=== PATIENT | male | born 2000 | race African-American/Black ===

== ENCOUNTER 2023-03-07 00:58 | Observation (INO) | payer OTHER, SELFPAY ==
[2023-03-07] VITALS (12 sets, daily range): BP systolic 108–126; BP diastolic 37–71; PULSE 53–80; RESP 14–20; TEMP 36.6–37.2; O2SAT 90–100; BMI 26.6; BMI 26.9
--- NOTE | ~2023-03-07 | CT_ITS ---
EXAMINATION: CT ABDOMEN AND PELVIS WITH CONTRAST CLINICAL INFORMATION: Right lower quadrant periumbilical pain COMPARISON: None available. TECHNIQUE: Multidetector volumetric images were obtained from the superior aspect of the liver through the pubic symphysis following administration 85 mL of Omnipaque 350 intravenous contrast. Sagittal and coronal reformatted images were obtained on the technologist's workstation. Oral contrast: No This CT examination was performed using dose optimization techniques as appropriate, variously including the following: *Automated exposure control *Adjustment of mA and/or kV according to patient size (this includes techniques or standardized protocols for targeted exams where dose is matched to indication/reason for exam; i.e. extremities or head) *Use of iterative reconstruction technique DLP: 441 mGy-cm FINDINGS: LUNG BASES: The visualized lung bases are unremarkable. LIVER, GALLBLADDER, AND BILIARY TREE: The liver is normal in size, shape, and attenuation. Calcified granuloma in the medial segment of the liver. No suspicious hepatic lesion or biliary ductal dilatation is present. The gallbladder is unremarkable with no evidence of radiopaque gallstones, gallbladder wall thickening, or obvious pericholecystic inflammatory changes. PANCREAS: Unremarkable. SPLEEN: Unremarkable. ADRENAL GLANDS: Unremarkable. KIDNEYS AND URETERS: The kidneys are normal in size, shape, and attenuation. No hydronephrosis, hydroureter, or calculi seen. No perinephric stranding. BLADDER: Unremarkable. GASTROINTESTINAL TRACT: Appendix is dilated, and predominantly fluid-filled measuring up to 1.3 cm in diameter with accompanying mucosal hyperemia and a subcentimeter appendicolith near the origin (see modi images). Remainder of the GI tract unremarkable. ABDOMINAL WALL: No significant hernia is appreciated. LYMPH NODES: Normal. VASCULAR: Unremarkable. PELVIC VISCERA: Unremarkable. OSSEOUS STRUCTURES: Unremarkable. CT/CT abdomen pelvis w IV con IMPRESSION: Acute uncomplicated appendicitis.
[2023-03-07 02:00] LABS: Basophils Percent Auto 0.2 % (0-2); Eosinophils Percent Auto 0.5 % (0-4); Hemoglobin 16.3 g/dl (14.0-18.0); Imm Gran Abs Auto 0.01 X10*3/uL (0.00-0.03); Imm Gran Pct Auto 0.1 % (0.0-0.4); Lymphocytes Absolute Auto 1.3 X10*3/uL (1.2-4.9); Lymphocytes Percent Auto 15.5 % (20-40); MANUAL DIFF FLAG NO; Mean Corpuscular Hemoglobin 28.9 pg (27.0-33.0); Mean Corpuscular Volume 85.1 fL (80.0-98.0); Mean Platelet Volume 8.9 fL (9.4-12.4); Monocytes Absolute Auto 0.6 X10*3/uL (0.1-1.2); Monocytes Percent Auto 7.3 % (2-11); Neutrophils Absolute Auto 6.1 x10*3/uL (2.0-8.3); Neutrophils Percent Auto 76.4 % (45-73); Platelet Count 166 X10*3/uL (160-400); Red Blood Count 5.64 X10*6/uL (4.60-5.80); Red Cell Distribution Width 12.6 % (11.0-16.0); White Blood Count 8.1 X10*3/uL (4.8-10.8)
--- NOTE | 2023-03-07 02:08 | ED.ABDPAIN ---
HPI - Abdominal Pain General Chief Complaint: Abdominal Pain Stated Complaint: stomach pain Time Seen by Provider: 03/07/23 01:46 Source: patient Mode of arrival: ambulatory History of Present Illness HPI narrative: 22-year-old male who presents with periumbilical/right lower quadrant pain started yesterday has been associated with nausea but denies any vomiting, reports decreased appetite but denies any fever chills or urinary symptoms. Related Data Allergies Allergy/AdvReac Type Severity Reaction Status Date / Time No Known Allergies Allergy Verified 03/07/23 02:07 Review of Systems Review of Systems Pertinent positives and negatives as stated in HPI REPLACED BY [facility] Past Medical History Source: nursing notes reviewed Social History Social History Advance Directives: No Advance Directives Information Provided: No Physical Exam ED Vital Signs: Vital Signs - 24 hr 03/07/23 01:23 03/07/23 01:24 03/07/23 03:18 Temperature 98.1 F 97.8 F Pulse Rate 64 64 77 Respiratory Rate 18 18 18 Blood Pressure 123/71 126/71 118/59 L Pulse Oximetry 100 99 99 Oxygen Delivery Method Room Air Room Air Room Air BMI result Body Mass Index 26.6 VITAL SIGNS: Reviewed. GENERAL: Well developed, well nourished, in no acute distress. HEAD: Normocephalic/atraumatic EYES: PERRLA, EOMI EARS: Ext canals without abnormality NOSE: Nares patent bilateral OROPHARYNX: no oral lesions noted, posterior pharynx clear NECK: Supple, no adenopathy LUNGS: Normal breath sounds. No adventitious sounds or accessory muscle use. SpO2<99> CARDIOVASCULAR: Regular rate and rhythm without noted murmurs ABDOMEN: Soft, periumbilical/right lower quadrant pain, non-distended with bowel sounds. MUSCULOSKELETAL: No tenderness, deformities, or effusions noted on gross inspection. EXTREMITIES: No cyanosis, clubbing or edema. SKIN: Inspection of the skin reveals no rashes NEUROLOGIC: Alert and oriented x 4. Strength and sensation to light touch were grossly intact x 4. Medical Decision Making Medical Decision Making [facility] Narrative: 0210: 22-year-old male with history and clinical presentation suggestive of acute appendicitis Review of all investigations my interpretation is this patient has acute appendicitis. He has received IV fluids, pain medication, antinausea medication, antibiotics. Differential Diagnosis Please see the discussion above Consult Healthcare Provider Management of the patient was discussed with: Planning Engineer Please see the discussion above Lab Data Please see the discussion above 03/07/23 01:55 03/07/23 01:55 Labs: Lab Results 03/07/23 03/07/23 03/07/23 Range/Units 01:55 01:55 04:06 WBC 8.1 (4.8-10.8) X10*3/uL RBC 5.64 (4.60-5.80) X10*6/uL Hgb 16.3 (14.0-18.0) g/dl Hct 48.0 (42.0-52.0) % MCV 85.1 (80.0-98.0) fL MCH 28.9 (27.0-33.0) pg MCHC 34.0 (31.0-36.0) g/dl RDW 12.6 (11.0-16.0) % Plt Count 166 (160-400) X10*3/uL MPV 8.9 L (9.4-12.4) fL Immature Gran % (Auto) 0.1 (0.0-0.4) % Neut % (Auto) 76.4 H (45-73) % Lymph % (Auto) 15.5 L (20-40) % [place] % (Auto) 7.3 (2-11) % Eos % (Auto) 0.5 (0-4) % Baso % (Auto) 0.2 (0-2) % Lymph # (Auto) 1.3 (1.2-4.9) X10*3/uL [place] # (Auto) 0.6 (0.1-1.2) X10*3/uL Eos # (Auto) 0.0 (0.0-0.4) X10*3/uL Baso # (Auto) 0.0 (0.0-0.2) X10*3/uL Abs Immat Gran (auto) 0.01 (0.00-0.03) X10*3/uL Absolute Neuts (auto) 6.1 (2.0-8.3) x10*3/uL Absolute Nucleated RBC 0.000 (0.0-0.012) X10*3/uL Nucleated RBC % (auto) 0.0 (0.0-0.2) /100WBC Sodium 138 (135-145) mmol/L Potassium 4.0 (3.3-5.1) mmol/L Chloride 102 (96-108) mmol/L Carbon Dioxide 28 (22-29) mmol/L Anion Gap 12 (12-20) BUN 11 (9-16) mg/dL Creatinine 1.24 (0.5-1.4) mg/dL Estim Creat Clear Calc 88.1 Estimated GFR > 60 Random Glucose 103 (60-115) mg/dL Calcium 9.7 (8.4-10.2) mg/dL Total Bilirubin 1.4 H (0.0-1.0) mg/dL Direct Bilirubin 0.4 (0.0-0.5) mg/dL AST 25 (5-37) U/L ALT 16 (0-40) U/L Alkaline Phosphatase 95 (39-117) U/L Total Protein 7.3 (6.5-8.0) g/dL Albumin 4.2 (3.5-5.0) g/dL Lipase 18 (8-78) U/L Urine Color Yellow Urine Appearance Clear Urine pH 6.5 (5.0-9.0) Ur Specific [place] >= 1.030 H (1.005-1.025) Urine Protein Negative (Neg-Trace) mg/dL Urine Glucose (UA) Negative (Negative) mg/dL Urine Ketones 15 (Negative) mg/dL Urine Blood Negative (Negative) Urine Nitrite Negative (Negative) Ur Leukocyte Esterase Negative (Negative) Radiology Impression Radiologist Impression: My interpretation is in agreement with radiology's impression. Medications Administered Discontinued Medications Generic Name Dose Route Start Last Admin Trade Name Eddieq PRN Reason Stop Dose Admin Fentanyl 25 mcg 03/07/23 02:12 03/07/23 02:34 Fentanyl Citrate/Pf 100 Mcg/2 Ml Vial IVPUSH 03/07/23 02:13 25 mcg ONCE ONE Administration Protocol Sodium Chloride 1,000 mls @ 999 mls/hr 03/07/23 02:15 03/07/23 04:02 Ns IV 03/07/23 03:15 Infused .Q1H1M CRUZ Infusion Iohexol 85 ml 03/07/23 03:44 03/07/23 03:44 Iohexol 350 Mg/Ml 100 Ml Infus..Btl IV 03/07/23 03:45 85 ml ONCE ONE Administration Ketorolac Tromethamine 15 mg 03/07/23 03:51 03/07/23 04:02 Ketorolac Tromethamine 30 Mg/Ml Vial IVPUSH 03/07/23 03:52 15 mg ONCE ONE Administration Discharge Plan Discharge Clinical Impression: Acute appendicitis Patient Disposition: Admitted As Inpatient
[2023-03-07 02:15] LABS: Alanine Aminotransferase 16 U/L (0-40); Albumin Level 4.2 g/dL (3.5-5.0); Alkaline Phosphatase 95 U/L (39-117); Anion Gap 12 (12-20); Aspartate Amino Transferase 25 U/L (5-37); Bilirubin Direct 0.4 mg/dL (0.0-0.5); Bilirubin Total 1.4 mg/dL (0.0-1.0); Blood Urea Nitrogen 11 mg/dL (9-16); Calcium 9.7 mg/dL (8.4-10.2); Carbon Dioxide 28 mmol/L (22-29); Chloride 102 mmol/L (96-108); Creatinine Clr Calc Pharmacy 88.1; Estimated Glomerular Filt Rate > 60; Glucose Random 103 mg/dL (60-115); Lipase 18 U/L (8-78); Sodium 138 mmol/L (135-145); Total Protein 7.3 g/dL (6.5-8.0)
[2023-03-07] MEDS: fentaNYL citrate/PF 100 MCG/2 ML VIAL 25 MCG IVPUSH (02:34)
[2023-03-07] MEDS: 0.9 % Sodium Chloride 1,000 ML 999 ML IV (02:34)
[2023-03-07] MEDS: iohexoL 350 MG/ML 100 ML INFUS..BTL 85 ML IV (03:44)
[2023-03-07] MEDS: Ketorolac Tromethamine 30 MG/ML VIAL 15 MG IVPUSH (04:02)
--- NOTE | 2023-03-07 04:10 | PC.NURSE ---
pt reports continued pain. this rn made dr gupta aware. pt medicated according to dec. pt ambulatory to restroom, urine sample obtained and sent down to lab
[2023-03-07 04:12] LABS: Appearance Urine Clear; Color Urine Yellow; Glucose Urine UA Negative (Negative); Leukocyte Esterase Urine Negative (Negative); Nitrite Urine Negative (Negative); PH 6.5 (5.0-9.0); Specific Gravity - Urine >= 1.030 (1.005-1.025); Urine Blood Negative (Negative); Urine Ketones 15 mg/dL (Negative); Urine Protein Negative (Neg-Trace)
[2023-03-07] MEDS: Piperacillin Sodium/Tazobactam 3.375 GM in 0.9 % Sodium Chloride 50 ML IV ×4 (05:00→23:47)
[2023-03-07] MEDS: ondansetron HCL 4 MG/2 ML VIAL IVPUSH (05:00)
--- NOTE | 2023-03-07 05:09 | PC.NURSE ---
pt resting on stretcher at this time. pt calm and cooperative. pt reports 4/10 pain at this time. pt states feeling much better . lights dimmed. pt medicated according to mar
[2023-03-07 05:10] LABS: Lactic Acid 0.6 mmol/L (0.5-2.0)
[2023-03-07] MEDS: Dextrose 5 % and Lactated Ring 1,000 ML 125 ML IVCONT (05:31)
--- NOTE | 2023-03-07 06:50 | PC.NURSE ---
pt able to sleep at this time. pt positioned on back. lights dimmed. IVF infusing according to mar
--- NOTE | 2023-03-07 08:47 | PM.HPGS ---
History of Present Illness History of Present Illness Date of Service: 03/10/23 Chief complaint: Acute Appendicitis Narrative: Rosendo Morris is a 22 year old male seen in the ER for abdominal pain. He says that this started about 36 hours ago. He describes this as all over his lower abdomen, right more than the left. He says that this has been persistent and constant. He denies any nausea or vomiting. He denies any diarrhea or other GI complaints. He has never had any similar episodes in the past. He is healthy otherwise and denies any medical problems. He says he does not have any primary care physician. 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 Review of Systems Constitutional: Constitutional: Denies chills and Denies fever(s) Cardiovascular: Cardiovascular: Denies chest pain, Denies dyspnea and Denies dyspnea on exertion Respiratory: Respiratory: Denies cough, Denies dyspnea and Denies dyspnea on exertion Gastrointestinal: Gastrointestinal: Denies hematochezia and Denies change in bowel habits Genitourinary: Genitourinary: Denies hematuria and Denies difficulty urinating Musculoskeletal: Musculoskeletal: Denies back pain and Denies limited range of motion Neurologic: Denies focal weakness and Denies convulsions Psychiatric: Psychiatric: Denies depression and Denies mood swings PMFSH Social History Social History Household Members: Family Housing: Apartment Patient Tobacco Use Status: Never used Tobacco service: No Current occupational status: student Meds Allergies Allergy/AdvReac Type Severity Reaction Status Date / Time No Known Allergies Allergy Verified 03/07/23 02:07 Active Medications: Current Medications Acetaminophen (Acetaminophen 325 Mg Tablet) 650 mg PO QID PRN PRN Reason: headache, temp > 101 Hydromorphone HCl (Hydromorphone Hcl 0.5 Mg/0.5 Ml Syringe) 0.5 mg IVPUSH Q3H PRN; Protocol PRN Reason: Pain, Severe (Pain Scale 7-10) Dextrose/Lactated Ringer's (D5lr) 1,000 mls @ 125 mls/hr IVCONT .Q8H CRUZ Last Admin: 03/07/23 05:31 Dose: 125 mls/hr Piperacillin Sod/Tazobactam (Sod 3.375 gm/ Sodium Chloride) 50 mls @ 100 mls/hr IV Q6H CRUZ Ondansetron HCl (Ondansetron Hcl 4 Mg/2 Ml Vial) 4 mg IVPUSH QID PRN PRN Reason: Nausea Oxycodone HCl (Oxycodone Hcl Immed Release 5 Mg Tablet) 5 mg PO Q6H PRN PRN Reason: Pain, Moderate(Pain Scale 4-6) Sodium Chloride (0.9 % Sodium Chloride Flush 3 Ml Syringe) 3 ml IVFLUSH QSHIFT CRUZ Physical Exam Vital Signs: Vital Signs: Last Vital Signs Temp 98.4 F 03/07/23 05:38 Pulse 67 03/07/23 05:38 Resp 14 03/07/23 05:38 BP 108/37 L 03/07/23 05:38 Pulse Ox 98 03/07/23 05:38 O2 Del Method Room Air 03/07/23 05:38 BMI result Body Mass Index 26.6 Const: Other: Complains of pain on the lower abdomen General: comfortable and no acute distress Orientation/consciousness: patient oriented x3 Neck: Neck: Yes no lymphadenopathy Resp: Auscultation: clear to auscultation bilaterally Cardio: Rhythm: regular rhythm GI: Other: tender on the lower abdomen, right more than the left, with mild guarding Inspection: No distended Palpation (GI): Soft to palpation, Tenderness to palpation present (GI) and no guarding Neuro: General: patient oriented x3 Results Results Labs: Short CBC 03/07/23 Range/Units 01:55 WBC 8.1 (4.8-10.8) X10*3/uL Hgb 16.3 (14.0-18.0) g/dl Hct 48.0 (42.0-52.0) % Plt Count 166 (160-400) X10*3/uL BMP 03/07/23 01:55 Sodium 138 Potassium 4.0 Chloride 102 Carbon Dioxide 28 BUN 11 Creatinine 1.24 Calcium 9.7 Liver Function 03/07/23 Range/Units 01:55 Total Bilirubin 1.4 H (0.0-1.0) mg/dL Direct Bilirubin 0.4 (0.0-0.5) mg/dL AST 25 (5-37) U/L ALT 16 (0-40) U/L Alkaline Phosphatase 95 (39-117) U/L Albumin 4.2 (3.5-5.0) g/dL Urine 03/07/23 Range/Units 04:06 Urine Color Yellow Urine Appearance Clear Urine pH 6.5 (5.0-9.0) Ur Specific [place] >= 1.030 H (1.005-1.025) Urine Protein Negative (Neg-Trace) mg/dL Urine Glucose (UA) Negative (Negative) mg/dL Laboratory Results WBC 8.1 X10*3/uL (4.8-10.8) 03/07/23 01:55 RBC 5.64 X10*6/uL (4.60-5.80) 03/07/23 01:55 Hgb 16.3 g/dl (14.0-18.0) 03/07/23 01:55 Hct 48.0 % (42.0-52.0) 03/07/23 01:55 MCV 85.1 fL (80.0-98.0) 03/07/23 01:55 MCH 28.9 pg (27.0-33.0) 03/07/23 01:55 MCHC 34.0 g/dl (31.0-36.0) 03/07/23 01:55 RDW 12.6 % (11.0-16.0) 03/07/23 01:55 Plt Count 166 X10*3/uL (160-400) 03/07/23 01:55 MPV 8.9 fL (9.4-12.4) L 03/07/23 01:55 Immature Gran % (Auto) 0.1 % (0.0-0.4) 03/07/23 01:55 Neut % (Auto) 76.4 % (45-73) H 03/07/23 01:55 Lymph % (Auto) 15.5 % (20-40) L 03/07/23 01:55 [place] % (Auto) 7.3 % (2-11) 03/07/23 01:55 Eos % (Auto) 0.5 % (0-4) 03/07/23 01:55 Baso % (Auto) 0.2 % (0-2) 03/07/23 01:55 Lymph # (Auto) 1.3 X10*3/uL (1.2-4.9) 03/07/23 01:55 [place] # (Auto) 0.6 X10*3/uL (0.1-1.2) 03/07/23 01:55 Eos # (Auto) 0.0 X10*3/uL (0.0-0.4) 03/07/23 01:55 Baso # (Auto) 0.0 X10*3/uL (0.0-0.2) 03/07/23 01:55 Abs Immat Gran (auto) 0.01 X10*3/uL (0.00-0.03) 03/07/23 01:55 Absolute Neuts (auto) 6.1 x10*3/uL (2.0-8.3) 03/07/23 01:55 Absolute Nucleated RBC 0.000 X10*3/uL (0.0-0.012) 03/07/23 01:55 Nucleated RBC % (auto) 0.0 /100WBC (0.0-0.2) 03/07/23 01:55 Sodium 138 mmol/L (135-145) 03/07/23 01:55 Potassium 4.0 mmol/L (3.3-5.1) 03/07/23 01:55 Chloride 102 mmol/L (96-108) 03/07/23 01:55 Carbon Dioxide 28 mmol/L (22-29) 03/07/23 01:55 Anion Gap 12 (12-20) 03/07/23 01:55 BUN 11 mg/dL (9-16) 03/07/23 01:55 Creatinine 1.24 mg/dL (0.5-1.4) 03/07/23 01:55 Estim Creat Clear Calc 88.1 03/07/23 01:55 Estimated GFR > 60 03/07/23 01:55 Random Glucose 103 mg/dL (60-115) 03/07/23 01:55 Lactic Acid 0.6 mmol/L (0.5-2.0) 03/07/23 04:48 Calcium 9.7 mg/dL (8.4-10.2) 03/07/23 01:55 Total Bilirubin 1.4 mg/dL (0.0-1.0) H 03/07/23 01:55 Direct Bilirubin 0.4 mg/dL (0.0-0.5) 03/07/23 01:55 AST 25 U/L (5-37) 03/07/23 01:55 ALT 16 U/L (0-40) 03/07/23 01:55 Alkaline Phosphatase 95 U/L (39-117) 03/07/23 01:55 Total Protein 7.3 g/dL (6.5-8.0) 03/07/23 01:55 Albumin 4.2 g/dL (3.5-5.0) 03/07/23 01:55 Lipase 18 U/L (8-78) 03/07/23 01:55 Urine Color Yellow 03/07/23 04:06 Urine Appearance Clear 03/07/23 04:06 Urine pH 6.5 (5.0-9.0) 03/07/23 04:06 Ur Specific [place] >= 1.030 (1.005-1.025) H 03/07/23 04:06 Urine Protein Negative mg/dL (Neg-Trace) 03/07/23 04:06 Urine Glucose (UA) Negative mg/dL (Negative) 03/07/23 04:06 Urine Ketones 15 mg/dL (Negative) 03/07/23 04:06 Urine Blood Negative (Negative) 03/07/23 04:06 Urine Nitrite Negative (Negative) 03/07/23 04:06 Ur Leukocyte Esterase Negative (Negative) 03/07/23 04:06 Impressions Abdomen/Pelvis CT 03/07/23 03:40 IMPRESSION: Acute uncomplicated appendicitis. Assessment and Plan (1) Acute appendicitis: Status: Acute 22-year-old male, abdominal pain, right more than the left. I have reviewed his CAT scan with the radiologist this morning. There is note of some edema and hyperemia of the appendix along with a small appendicoliths. Overall clinical findings are consistent with acute appendicitis. I therefore explained to him the none of proceeding with laparoscopic appendectomy and possible open appendectomy. I reviewed the risks including but not limited to bleeding, infections, injury to other organs including bowel and had tract, blood clots, pneumonia, well as the benefits and alternatives. He understands the option of IV antibiotic treatment alone, although with the presence of the appendicoliths, I explained to him that this may not be effective. He says he understands and wants to proceed with laparoscopic appendectomy. I had a long discussion with his mother as well who lives in [place] at [phone]. Time Spent With Patient Time: Total time managing care of this patient today ____ minutes. Quality Stroke Does the patient have a stroke diagnosis?: No VTE Prior VTE?: No VTE Risk Level:: Surgical - low VTE Device Contraindication: N/A - Device Ordered VTE Drug Contraindication: Treatment Not Indicated Procedures Date of Service Date of Service: 03/10/23
--- NOTE | 2023-03-07 09:28 | PC.NURSE ---
Spoke to [facility] about patient's status, requesting fax [phone] upon discharge about pt's stay/discharge instructions. Pt aware
--- NOTE | 2023-03-07 10:26 | HO.ANESPROP2 ---
HPI - Anesthesia Eval Consult details Narrative: for appendectomy PMFSH Active Problems Active Problems: All Active Problems (Updated 03/07/23 @ 04:41 by Charley Gomez MD) Acute appendicitis (Acute) Family History Family history of problems with anesthesia: No Surgical History History of Problems with Anesthesia: No Social History Social History Household Members: Family Housing: Apartment Patient Tobacco Use Status: Never used Tobacco Smoked in Last 30 Days: No Use of substances other than those prescribed or required for medical reasons: No Have you been hit, kicked, punched, or otherwise hurt by someone within the past year? If so, by whom?: No Do you feel safe in your current relationship?: No Is there a partner from a previous relationship who is making you feel unsafe now?: No Are you made to feel afraid or neglected: No Advance Directives: No Advance Directives Information Provided: No Do you have thoughts of harming others: None Do you have a plan to hurt others: No Plan Recently lost weight without trying: No Eating poorly because of decreased appetite: No Nutrition Risks: No Nutritional Risk Poor oral hygiene: Yes Meds Allergies Allergy/AdvReac Type Severity Reaction Status Date / Time No Known Allergies Allergy Verified 03/07/23 02:07 Active Medications: Current Medications Acetaminophen (Acetaminophen 325 Mg Tablet) 650 mg PO QID PRN PRN Reason: headache, temp > 101 Hydromorphone HCl (Hydromorphone Hcl 0.5 Mg/0.5 Ml Syringe) 0.5 mg IVPUSH Q3H PRN; Protocol PRN Reason: Pain, Severe (Pain Scale 7-10) Dextrose/Lactated Ringer's (D5lr) 1,000 mls @ 125 mls/hr IVCONT .Q8H CRUZ Last Admin: 03/07/23 05:31 Dose: 125 mls/hr Piperacillin Sod/Tazobactam (Sod 3.375 gm/ Sodium Chloride) 50 mls @ 100 mls/hr IV Q6H CRUZ Ondansetron HCl (Ondansetron Hcl 4 Mg/2 Ml Vial) 4 mg IVPUSH QID PRN PRN Reason: Nausea Oxycodone HCl (Oxycodone Hcl Immed Release 5 Mg Tablet) 5 mg PO Q6H PRN PRN Reason: Pain, Moderate(Pain Scale 4-6) Sodium Chloride (0.9 % Sodium Chloride Flush 3 Ml Syringe) 3 ml IVFLUSH QSHIFT CRUZ Last Admin: 03/07/23 09:09 Dose: Not Given Home Medications Medication Instructions Recorded Confirmed Last Taken Type No Known Home Meds 03/07/23 03/07/23 Unknown History Exam Exam Date and Time: March 07, 2023 1026 Height,Weight and Vital Signs: Height 5 ft 7 in Weight 78 kg Last Vital Signs Temp 98.5 F 03/07/23 10:13 Pulse 80 03/07/23 10:13 Resp 20 03/07/23 10:13 BP 114/58 L 03/07/23 10:13 Pulse Ox 98 03/07/23 10:13 O2 Del Method Room Air 03/07/23 10:13 Pertinent Lab Results Pertinent Lab Results: Laboratory Tests 03/07/23 03/07/23 03/07/23 01:55 01:55 04:06 WBC 8.1 RBC 5.64 Hgb 16.3 Hct 48.0 MCV 85.1 MCH 28.9 MCHC 34.0 RDW 12.6 Plt Count 166 MPV 8.9 L Immature Gran % (Auto) 0.1 Neut % (Auto) 76.4 H Lymph % (Auto) 15.5 L [place] % (Auto) 7.3 Eos % (Auto) 0.5 Baso % (Auto) 0.2 Lymph # (Auto) 1.3 [place] # (Auto) 0.6 Eos # (Auto) 0.0 Baso # (Auto) 0.0 Abs Immat Gran (auto) 0.01 Absolute Neuts (auto) 6.1 Absolute Nucleated RBC 0.000 Nucleated RBC % (auto) 0.0 Sodium 138 Potassium 4.0 Chloride 102 Carbon Dioxide 28 Anion Gap 12 BUN 11 Creatinine 1.24 Estim Creat Clear Calc 88.1 Estimated GFR > 60 Random Glucose 103 Lactic Acid Calcium 9.7 Total Bilirubin 1.4 H Direct Bilirubin 0.4 AST 25 ALT 16 Alkaline Phosphatase 95 Total Protein 7.3 Albumin 4.2 Lipase 18 Urine Color Yellow Urine Appearance Clear Urine pH 6.5 Ur Specific [place] >= 1.030 H Urine Protein Negative Urine Glucose (UA) Negative Urine Ketones 15 Urine Blood Negative Urine Nitrite Negative Ur Leukocyte Esterase Negative 03/07/23 04:48 WBC RBC Hgb Hct MCV MCH MCHC RDW Plt Count MPV Immature Gran % (Auto) Neut % (Auto) Lymph % (Auto) [place] % (Auto) Eos % (Auto) Baso % (Auto) Lymph # (Auto) [place] # (Auto) Eos # (Auto) Baso # (Auto) Abs Immat Gran (auto) Absolute Neuts (auto) Absolute Nucleated RBC Nucleated RBC % (auto) Sodium Potassium Chloride Carbon Dioxide Anion Gap BUN Creatinine Estim Creat Clear Calc Estimated GFR Random Glucose Lactic Acid 0.6 Calcium Total Bilirubin Direct Bilirubin AST ALT Alkaline Phosphatase Total Protein Albumin Lipase Urine Color Urine Appearance Urine pH Ur Specific [place] Urine Protein Urine Glucose (UA) Urine Ketones Urine Blood Urine Nitrite Ur Leukocyte Esterase Airway Mallampati Class: I TM Dist: >3cm Neck ROM: Full Heart: ok Lungs: ok Assessment and Plan Assessment Anesthesia Assessment: Anesthesia Plan Discussed and Chart Reviewed Final Anesthetic Review Family History of Problems with Anesthesia: No History of Problems with Anesthesia: No NPO: Yes ASA Class: I and Emergency Final Preanesthetic Review: No Changes in Pt Med Stat, Meds/Allgs Chart Reviewed, Consent Obtained/Reviewed and Anes Risks/Benef Reviewed Patient Risk: Low Procedure Risk: Intermediate Anesthetic Plan Anesthetic Plan: GA and Agree w/ Assess. and Plan Disposition: Standard PACU
[2023-03-07] MEDS: oxyCODONE HCl Immed Release 5 MG TABLET PO (11:12)
--- NOTE | 2023-03-07 12:55 | P.OP_ITS ---
Operative Note Operative Note Date of Service: 03/07/23 Narrative: Preop diagnosis: Acute appendicitis Postop diagnosis: Acute appendicitis, with suppuration and purulence on the distal half of the appendix Procedure: Laparoscopic appendectomy Surgeon: Alex Brambila MD The patient is a 22-year-old male who went to the ER because of lower abdominal pain. His CAT scan was consistent with acute appendicitis. He understood the technique of laparoscopic appendectomy and was aware of the risks, benefits, and alternatives and given consent He was brought to the operating room. He was placed supine under general anesthesia via endotracheal tube. A Figueroa catheter inserted. The abdomen is prepped and draped in the usual sterile fashion. A surgical time-out was done. The patient was receiving Zosyn as scheduled. Made a short supraumbilical incision using a blade 15 and this was carried down through the full-thickness of the skin and subcutaneous fat. The fascia was exposed. The fascia was incised. The peritoneum was entered. Through this incision port was introduced. Pneumoperitoneum on was introduced to a pressure of 15 mm hg. From here on the rest of the procedure was done under vision with laparoscopic. with laparoscopic visualization, I proceeded to insert a 5/12 mm port in left lower quadrant through a small stab incision. 5 minutes a port introduced a small stab incision in the suprapubic margin. Graspers were placed on these working ports. The patient was placed in a head-down and [id number] position. The cecum was seen. by following the cecum, I was able to visualize the appendix. The appendix was hanging down into the low pelvis and was adherent to the sacrum and the pelvic sidewall as well. Multiple out of suppuration and purulence in the distal half of the appendix. There was note of a small bowel adherent to this but I was able to separate this really with gentle dissection. I applied a grasper on the mid part of the appendix to put this on stretch. I was able to therefore expose the base. I had to some of the ligamentous attachments on the Lateral side of the cecum to allow good mobilization and exposure of the entire base. with the appendix on stretch, I proceeded to create a mesenteric window at the base using the [place] dissector. I then used the Endo-DARRIUS 45 mm stapler to divide the base of the appendix. Used the LigaSure to divide the mesoappendix completely. Once this was achieved, I retrieved the appendix through an endobag through the umbilical incision. I reinserted all ports and re-insufflated. The area of dissection. The etta were intact. There is no signs of any bleeding. There was note of some pus in the pelvis so I suctioned and irrigated this. I observed all 4 quadrants. No other pathology seen. There were no signs of any bleeding or any bowel injury . Once hemostasis was confirmed, I desufflated to the port sites. I removed all ports under vision. The umbilical port was removed last. The fascia of the umbilical incision was closed with a figure-eight was of 0 stitch. Skin closure was achieved on all incisions using subcuticular running sutures with Polysorb 4-0. I infiltrated all incisions with Marcaine 0.5% for postop DARRIUS. Dressings were applied and the procedure was completed. The patient tolerated procedure well. There were no immediate complications. Initial and final counts of sponges and instruments were correct. Estimated b lood loss was about 10 cc. The patient was extubated without difficulty and transferred to the recovery room with stable vital signs.
[2023-03-07] MEDS: HYDROmorphone HCl 0.5 MG/0.5 ML SYRINGE IVPUSH ×2 (15:07→20:28)
[2023-03-07] MEDS: Dextrose 5 % and Lactated Ring 1,000 ML 60 ML IVCONT (15:08)
--- NOTE | 2023-03-07 15:37 | PM.EVENT ---
Event Note Date of Service: 03/07/23 Event Note: seen postop underwent lap appy earlier today looks well good pain control stable VS abd soft pain mgt doing well postop likely home tomorrow mother updated by phone Time Spent With Patient Time: Total time managing care of this patient today ____ minutes.
--- NOTE | 2023-03-07 16:00 | MHC.CM.PN ---
CM ATTEMPTED TO MEET WITH PT WHO HAD JUST RETURNED TO THE UNIT FOLLOWING A PROCEDURE AND IS QUITE LETHARGIC PT IS MINIMALLY ENGAGED BUT DOES PROVIDE SOME INFORMATION PT REPORTS HE RESIDES AT THE [facility] [facility] WHERE HE IS INDEPENDENT WITH CARE AND USES NO DME PT IS UNSURE IF HE HAS HEALTH INSURANCE BUT SAYS HE DID HAVE A PAPER FROM THE SCHOOL HE WILL LOCATE IT ONCE MORE ALERT HE DOES NOT HAVE A PCP OR A HCP CURRENT DC PLAN IS RETURN TO [facility] UNKNOWN AT THIS TIME
[2023-03-08 03:21] VITALS: BP 127/65; PULSE 63; RESP 16; TEMP 36.8; O2SAT 100
[2023-03-08] MEDS: Piperacillin Sodium/Tazobactam 3.375 GM in 0.9 % Sodium Chloride 50 ML IV ×2 (05:36→11:22)
[2023-03-08] MEDS: Dextrose 5 % and Lactated Ring 1,000 ML 60 ML IVCONT (05:36)
[2023-03-08 07:03] VITALS: BP 106/52; PULSE 54; RESP 18; TEMP 36.8; O2SAT 97
--- NOTE | 2023-03-08 10:09 | PM.PNGS ---
Subjective Subjective Date of Service: 03/08/23 <Purnima Subramanian PA-C - Last Filed: 03/08/23 10:12> 03/08/23 <Alex Brambila MD - Last Filed: 03/08/23 12:23> Interval history: Feels a little better but sore at umbilicus. Pain improved with narcotics for short period. Tolerating solid diet. OOB and ambulating halls. Unsure if he wants to go home as he has no help in the dorm. <Purnima Subramanian PA-C - Last Filed: 03/08/23 10:12> Physical Exam Vital Signs: Vital Signs: Last Vital Signs Temp 98.3 F 03/08/23 07:03 Pulse 54 03/08/23 07:03 Resp 18 03/08/23 07:03 BP 106/52 L 03/08/23 07:03 Pulse Ox 97 03/08/23 07:03 O2 Del Method Room Air 03/08/23 07:03 O2 Flow Rate 1 03/07/23 13:05 BMI result Body Mass Index 26.9 <Purnima Subramanian PA-C - Last Filed: 03/08/23 10:12> Const: General: comfortable, no acute distress and alert <DANYELLE Lundberg Last Filed: 03/08/23 10:12> Orientation/consciousness: patient oriented x3 <Purnima Subramanian PA-C - Last Filed: 03/08/23 10:12> Resp: Effort & Inspection: normal respiratory effort <Purnima Subramanian PA-C - Last Filed: 03/08/23 10:12> GI: Inspection: No distended and Yes incision (dressings c/d/i) <Purnima Subramanian PA-C - Last Filed: 03/08/23 10:12> Palpation (GI): Soft to palpation, Tenderness to palpation present (GI) (incisional), no guarding and not rigid <DANYELLE Lundberg Last Filed: 03/08/23 10:12> Percussion: Yes normal to percussion <DANYELLE Lundberg Last Filed: 03/08/23 10:12> Skin: General skin exam: no rashes or lesions noted <Purnima Subramanian PA-C - Last Filed: 03/08/23 10:12> Neuro: General: patient oriented x3 and moves all extremities <Purnima Subramanian PA-C - Last Filed: 03/08/23 10:12> Objective Data Active Medications Acetaminophen (Acetaminophen 325 Mg Tablet) 650 mg PO QID PRN PRN Reason: headache, temp > 101 Fentanyl (Fentanyl Citrate/Pf 100 Mcg/2 Ml Vial) 50 mcg IVPUSH Q5M PRN; Protocol PRN Reason: Pain, Severe (Pain Scale 7-10) Hydromorphone HCl (Hydromorphone Hcl 0.5 Mg/0.5 Ml Syringe) 0.5 mg IVPUSH Q3H PRN; Protocol PRN Reason: Pain, Severe (Pain Scale 7-10) Last Admin: 03/07/23 20:28 Dose: 0.5 mg Documented By: ERIN Hydromorphone HCl (Hydromorphone Hcl 0.5 Mg/0.5 Ml Syringe) 0.5 mg IVPUSH Q5M PRN; Protocol PRN Reason: Pain, Severe (Pain Scale 7-10) Dextrose/Lactated Ringer's (D5lr) 1,000 mls @ 60 mls/hr IVCONT .[id number] [facility] Last Admin: 03/08/23 05:36 Dose: 60 mls/hr Documented By: ERIN Piperacillin Sod/Tazobactam (Sod 3.375 gm/ Sodium Chloride) 50 mls @ 100 mls/hr IV Q6H [facility] Last Infusion: 03/08/23 06:22 Dose: 0 mls/hr Documented By: ERIN Ondansetron HCl (Ondansetron Hcl 4 Mg/2 Ml Vial) 4 mg IVPUSH QID PRN PRN Reason: Nausea Ondansetron HCl (Ondansetron Hcl 4 Mg/2 Ml Vial) 4 mg IVPUSH ONCE PRN PRN Reason: Nausea and Vomiting Oxycodone HCl (Oxycodone Hcl Immed Release 5 Mg Tablet) 5 mg PO Q6H PRN PRN Reason: Pain, Moderate(Pain Scale 4-6) Last Admin: 03/07/23 11:12 Dose: 5 mg Documented By: FERNANDA Sodium Chloride (0.9 % Sodium Chloride Flush 3 Ml Syringe) 3 ml IVFSH QSHIFT [facility] Last Admin: 03/08/23 07:35 Dose: Not Given Documented By: JEAN Non-Admin Reason: IV Running <Purnima Subramanian PA-C - Last Filed: 03/08/23 10:12> Labs CBC & Chem 7: 03/07/23 01:55 03/07/23 01:55 <Purnima Subramanian PA-C - Last Filed: 03/08/23 10:12> Microbiology Microbiology Results: Microbiology 03/07/23 04:48 Blood Culture - Preliminary Blood - Venous No growth after 24 hours. 03/07/23 04:48 Blood Culture - Preliminary Blood - Venous No growth after 24 hours. <Purnima Subramanian PA-C - Last Filed: 03/08/23 10:12> Procedures Date of Service Date of Service: 03/08/23 <Purnima Subramanian PA-C - Last Filed: 03/08/23 10:12> 03/08/23 <Alex Brambila MD - Last Filed: 03/08/23 12:23> Progress Note: A&P Assessment and plan (1) Acute appendicitis: Status: Acute <Purnima Subramanian PA-C - Last Filed: 03/08/23 10:12> (2) S/P laparoscopic appendectomy: Status: Acute <Purnima Subramanian PA-C - Last Filed: 03/08/23 10:12> Assessment and Plan: looks well no fever tolerating diet abd soft ok to dc home dc instructions reviewed with patient and his mother will see in office letter for work/school given to pt <Alex Brambila MD - Last Filed: 03/08/23 12:23> Assessment and Plan: 22 year old male admitted with acute appendicitis now POD #1 s/p lap appy. Doing well post op with appropriate post op tenderness, dressings c/d/i. Will reassess later today for possible discharge to home. <Purnima Subramanian PA-C - Last Filed: 03/08/23 10:12> Time Spent With Patient Time: Total time managing care of this patient today ____ minutes. <Purnima Subramanian PA-C - Last Filed: 03/08/23 10:12> Quality Stroke Does the patient have a stroke diagnosis?: No <Purnima Subramanian PA-C - Last Filed: 03/08/23 10:12> VTE Prior VTE?: No <Purnima Subramanian PA-C - Last Filed: 03/08/23 10:12> VTE Risk Level:: Surgical - low <Purnima Subramanian PA-C - Last Filed: 03/08/23 10:12> VTE Device Contraindication: N/A - Device Ordered <Purnima Subramanian PA-C - Last Filed: 03/08/23 10:12> VTE Drug Contraindication: Treatment Not Indicated <Purnima Subramanian PA-C - Last Filed: 03/08/23 10:12>
[2023-03-08] MEDS: HYDROmorphone HCl 0.5 MG/0.5 ML SYRINGE IVPUSH (10:15)
--- NOTE | 2023-03-08 12:26 | HO.POSTANES ---
Post Anesthesia Evaluation Post Anesthesia Evaluation Date of Service: 03/08/23 Vital Signs: Vital Signs Temp Pulse Resp BP Pulse Ox O2 Del Method 03/08/23 07:03 98.3 F 54 18 106/52 L 97 Room Air 03/08/23 03:21 98.2 F 63 16 127/65 100 Room Air Anesthesia: General Endotracheal-GETA Mental Status: Awake Pain Control: Satisfactory Nausea/Vomiting: None Hydration: Adequate Anesthesia-Related Issues: No Anes. Related Issues
--- NOTE | 2023-03-08 14:28 | P.DS_ITS ---
DS: Providers Provider Date of Service: 03/08/23 Date of admission: 03/07/23 04:56 Date of discharge: 03/08/23 Primary care physician: Unknown Physician Attending physician on admission: Alex Brambila DS: Diagnosis Discharge Diagnosis (1) Acute appendicitis: Status: Acute (2) S/P laparoscopic appendectomy: Status: Acute DS: Summary Hospital Course Hospital Course: HPI AT ADMISSION: Rosendo Morris is a 22 year old male seen in the ER for abdominal pain. He says that this started about 36 hours ago. He describes this as all over his lower abdomen, right more than the left. He says that this has been persistent and constant. He denies any nausea or vomiting. He denies any diarrhea or other GI complaints. He has never had any similar episodes in the past. He is healthy otherwise and denies any medical problems. He says he does not have any primary care physician. 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 22-year-old male, abdominal pain, right more than the left. CT showed note of some edema and hyperemia of the appendix along with small appendicoliths. Overall clinical findings are consistent with acute appendicitis. HOSPITAL COURSE: He was admitted to the surgical service for further treatment of acute appendicitis. He elected to proceed with appendectomy and was added onto the OR schedule for that day. On 03/08/23, a laparoscopic appendectomy was performed by Dr. Brambila without complication. The patient tolerated the procedure well. He Had an uncomplicated recovery course. On POD#1, he was tolerating a solid diet without nausea or vomiting. His pain was controlled. He was passing flatus. He had not had a BM in a few days and was started on colace. His abdomen was benign with clean dressings. He was reassessed later in the day and felt ready for discharge. He was discharge on 03/08/23 in stable condition on percocet and ibuprofen as needed for pain and colace for bowel regimen. Status at Discharge Functional status at discharge: independent ambulation Overall status at discharge: patient is progressing back to baseline Time Spent with Patient Time attestation: Total time managing care of this patient today ____ minutes. Discharge coordination time: Less than 30 minutes Quality: Safe Use of Opioids Does Pt have an Active Cancer Diagnosis on the Problem List?: No Quality: Stroke Does the patient have a stroke diagnosis?: No Physical Exam Vital Signs: Vital Signs: Last Vital Signs Temp 98.3 F 03/08/23 07:03 Pulse 54 03/08/23 07:03 Resp 18 03/08/23 07:03 BP 106/52 L 03/08/23 07:03 Pulse Ox 97 03/08/23 07:03 O2 Del Method Room Air 03/08/23 07:03 O2 Flow Rate 1 03/07/23 13:05 BMI result Body Mass Index 26.9 Const: General: comfortable, no acute distress and alert Orientation/consciousness: patient oriented x3 Resp: Effort & Inspection: normal respiratory effort GI: Inspection: No distended and Yes incision (dressings c/d/i) Palpation (GI): Soft to palpation, Tenderness to palpation present (GI) (mild incisional), no guarding and not rigid Skin: General skin exam: no rashes or lesions noted Neuro: General: patient oriented x3 and moves all extremities DS: Data Data Completed and Pending Pending studies at discharge: Pending at discharge 03/07/23 12:31 Surgical [PTH] Routine Labs on day of discharge: Preliminary micro results at discharge 03/07/23 04:48 Blood Culture - Preliminary Blood - Venous No growth after 24 hours. 03/07/23 04:48 Blood Culture - Preliminary Blood - Venous No growth after 24 hours. Discharge Plan Discharge Patient Disposition: Home, Self-Care Discharge Diagnosis: acute appendicitis s/p lap appy Referrals: Alex Brambila MD [Physician] - 2 Weeks Discharge Medications: New oxycodone-acetaminophen [Percocet] 5-325 mg tablet 1 tab PO Q4-6H PRN (Reason: pain) Qty: 20 0RF Rx Instructions: Partial Fill upon patient request. ibuprofen 600 mg tablet 600 mg PO Q6H PRN (Reason: pain) Qty: 30 0RF docusate sodium [Colace] 100 mg capsule 100 mg PO BID Qty: 60 2RF Discharge Orders: Discharge Order (Routine); Ordered 03/08/23 Ordered By: Alex Brambila Diet: Advance to usual diet Activity on Discharge: No heavy lifting Stand Alone Forms: Patient Portal Discharge page, Work/School Release Activity Restrictions/Additional Instructions: If the incision area is tender, you may apply an ice pack for short intervals (No more than 20 minutes on, followed by at least 20 minutes off). Do not apply heat. Do not use creams, lotions, or topical antibiotics unless instructed to do so by your surgeon. These can cause infection or allergic reaction. No lifting more than 20 lbs Okay to shower by March 09, 2022 Okay to change dressings with gauze or Band-Aid after showering No strenuous activities Call the office for follow-up in 2 weeks - with Dr. Brambila Call Your Doctor If: -Your temperature exceeds 101.5? F -You experience excessive pain or swelling -You have an unexpected reaction to medication -You have excessive bleeding -You experience continued vomiting/nausea -Your incision begins to separate -Your incision shows signs of infection such as increased redness, swelling, excessive pain, drainage (light blood or clear fluid is normal) or heat Care Plan Goals: pain management Health Concerns: postop pain control Plan of Treatment: oral pain meds Assessment: doing well
== END 2023-03-08 15:17 | disposition home or self-care (01) ==
LOC: HO.ED 04:58 → HO.EDOVER 05:05 → HO.S3 07:39
PROVIDERS: Surgery; Admitting Provider Surgery; Emergency Provider Student in an Organized Health Care Education/Training Program; Visit Provider Surgery
PROC: 0DTJ4ZZ Resection of Appendix, Percutaneous Endoscopic Approach (ICD-10-PCS; CPT 44970; principal; 2023-03-07 11:30)
DX: K35.80 Unspecified acute appendicitis (principal); R10.33 Periumbilical pain; R10.31 Right lower quadrant pain
CPT/HCPCS: 44970; 36415; 74177; 80053; 81003; 82248; 83605; 83690; 85025; 87040; 88304; 96361; 96365; 96366; 96375; 96376; 99221; 99285; J0131; J1170; J1885; J2405; J2543; J3010; Q9967

== ENCOUNTER 2023-03-28 13:48 | Emergency (ER) | payer SELFPAY | END 2023-03-28 16:31 | disposition left against medical advice (07) | LOC: HO.ED 16:26 | PROVIDERS: Emergency Provider Emergency Medicine | DX: Z51.89 Encounter for other specified aftercare (principal) ==